=== PATIENT | male | born 1970 | race Hispanic/Latino ===

== ENCOUNTER 2018-06-19 11:50 | Emergency (ER) | payer OTHER, SELFPAY ==
[2018-06-19] MEDS ORDERED: traMADol HCl 50 MG TAB ONE (13:32)
[2018-06-19] MEDS ORDERED: Adacel (T-DAP) 0.5 ML SYRINGE ONE (13:33)
[2018-06-19] MEDS ORDERED: Lidocaine 1% w/Epinephrine 1:100K 20 ML VIAL ONE (13:33)
== END 2018-06-19 14:45 | disposition home or self-care (01) ==
LOC: ERS 11:50
DX: L02.31 Cutaneous abscess of buttock (principal); F17.210 Nicotine dependence, cigarettes, uncomplicated
CPT/HCPCS: 10060; 90471; 90715; J2001

== ENCOUNTER 2018-06-20 16:45 | Emergency (ER) | payer SELFPAY ==
[2018-06-20] MEDS ORDERED: HYDROcodone/Acetaminophen 5/325 mg Tablet ONE (18:20)
== END 2018-06-20 18:26 | disposition home or self-care (01) ==
LOC: ERS 16:45
DX: Z48.817 Encounter for surgical aftercare following surgery on the skin and subcutaneous tissue (principal); F17.210 Nicotine dependence, cigarettes, uncomplicated
CPT/HCPCS: 99282

== ENCOUNTER 2019-08-22 09:34 | Emergency (ER) | payer SELFPAY ==
[2019-08-22] MEDS ORDERED: Adacel (T-DAP) 0.5 ML SYRINGE ONE (10:09)
== END 2019-08-22 10:24 | disposition home or self-care (01) ==
LOC: ERS 09:34
DX: S41.151A Open bite of right upper arm, initial encounter (principal); S81.851A Open bite, right lower leg, initial encounter; F17.210 Nicotine dependence, cigarettes, uncomplicated; W54.0XXA Bitten by dog, initial encounter
CPT/HCPCS: 90471; 90715

== ENCOUNTER 2019-08-31 07:34 | Emergency (ER) | payer SELFPAY | END 2019-08-31 08:31 | disposition home or self-care (01) | LOC: ERS 07:34 | DX: S71.151D Open bite, right thigh, subsequent encounter (principal); S41.151D Open bite of right upper arm, subsequent encounter; S81.012D Laceration without foreign body, left knee, subsequent encounter; F17.210 Nicotine dependence, cigarettes, uncomplicated; W54.0XXD Bitten by dog, subsequent encounter | CPT/HCPCS: 99283 ==

== ENCOUNTER 2020-03-29 18:27 | Emergency (ER) | payer SELFPAY ==
[~2020-03-29 18:27] MED LIST: Iopamidol-370 76% 500 ML 1 ML ONE
[2020-03-29] MEDS ORDERED: Ondansetron PF 4 MG/2 ML Vial ONE (18:38)
[2020-03-29] MEDS ORDERED: Fentanyl 100 MCG/2 ML VIAL ONE (18:38)
[2020-03-29 18:50] LABS: #Eosinphils 0.1 thou/uL (0.0-0.7); #Lymphocytes 2.9 thou/uL (1.20-3.40); #Monocytes 0.8 thou/uL (0.11-0.59); #Neutrophils 3.6 thou/uL (1.40-6.50); %Basophils 0.2 % (0.0-1.0); %Eosinophils 1.4 % (0.0-10.0); %Lymphocytes 38.9 % (21.0-51.0); %Monocytes 10.9 % (0.0-10.0); %Neutrophils 48.6 % (42.0-75.0); Hemoglobin 15.8 g/dL (14.0-18.0); Mean Corpuscular Hemoglobin 32.6 pg (27.0-31.0); Mean Platelet Volume 6.7 fL (7.4-10.4); Platelet Count 257 thou/uL (130-400); RBC Distribution Width 11.2 % (11.5-14.5); Red Blood Cell (RBC) Count 4.84 mill/uL (4.70-6.10); White Blood Cell (WBC) Count 7.4 thou/uL (4.8-10.8)
[2020-03-29 19:27] LABS: ALT (SGPT) 45 U/L (8-55); AST (SGOT) 26 U/L (5-34); Albumin 4.5 g/dL (3.5-5.0); Alkaline Phosphatase 115 U/L (40-110); Anion Gap 15 mmol/L (10-20); BUN (Urea Nitrogen) 11 mg/dL (8.9-20.6); Bilirubin, Total 0.5 mg/dL (0.2-1.2); Calc. Creatinine Clearance 0 mL/min (70-130); Calcium 9.4 mg/dL (7.8-10.44); Carbon Dioxide 25 mmol/L (22-29); Globulin 3.8 g/dL (2.4-3.5); Glucose 139 mg/dL (70-105); Protein, Total 8.3 g/dL (6.0-8.3)
--- NOTE | 2020-03-29 19:31 | CT ---
CT of the chest, abdomen, pelvis, thoracic spine, and lumbar spine: 03/29/2020 COMPARISON: None HISTORY: Injury, trauma, pain TECHNIQUE: Axial CT imaging at 5 mm intervals from the thoracic inlet through the pubic symphysis wit h IV contrast. Coronal and sagittal reformatted imaging provided of the chest, abdomen, pelvis, thoracic spine, and lumbar spine. FINDINGS: There is a small nonspecific hypodense lesion posterior to the clavicular head on the left extending into the superior mediastinum, measuring approximately 2.7 cm in greatest transverse dimension, stable when compared to a cervical spine CT performed in 2013. No axillary, mediastinal, or hilar adenopathy. No pleural, pericardial, or mediastinal fluid is noted . The vascular structures of the chest appear patent. There is no pneumothorax appreciated on either side. There are mild apical subpleural cystic changes bilaterally and there is mild centrilobular emphysema tous change within the right lung apex. No discrete pulmonary parenchymal mass lesion or nodule is appreciated on the left. No acute pulmonar y parenchymal abnormality is appreciated on either side. There is a left lower lobe pulmonary nodule on axial image 119 which measures approximately 5 mm. Review of the osseous structures of the chest demonstrate no acute findings. No free intraperitoneal air or fluid is seen. The liver, gallbladder, spleen, pancreas, adrenal glands, and kidneys demonstrate no acute findings. There are retroperitoneal postoperative clips. There are linear areas of calcification associated with the renal cortex on the left inferiorly and superiorly which may be related to prior insult or p rior surgery/procedure. Limited assessment of the bowel reveals no evidence for inflammatory change or obstruction. The vascu lar structures of the abdomen/pelvis appear patent and no abdominal or pelvic lymphadenopathy is appreciated. Review of the osseous structures of the pelvis demonstrate no widening of the pubic symphysis or sacr oiliac joints. No acute fracture or dislocation is seen within the pelvis. The sternum and manubrium appear intact. There is multilevel thoracic spine disc space narrowing and bilateral facet hypertrophy. Thoracic sandor tebral body height and alignment appears maintained with no evidence for an acute thoracic spine fracture or dislocation. There is prominent degenerative change at the lumbosacral junction with mild associated anterolisthes is. There is no acute fracture or dislocation appreciated within the lumbar spine. IMPRESSION: Numerous incidental findings as detailed above. No acute posttraumatic abnormalities are noted. This includes a 5 mm nodule within the right lower lobe. Based on Fleischner guidelines, Nodules of this size do not require follow-up in low risk patients. If the patient is a high risk pat ient for malignancy, follow-up chest CT suggested in one year. Results discussed with Dr. Zaldivar at 7:25 PM 03/29/2020
[2020-03-29 19:48] LABS: Chloride 102 mmol/L (98-107); Potassium 3.5 mmol/L (3.5-5.1); Sodium 138 mmol/L (136-145)
[2020-03-29] MEDS ORDERED: Ketorolac Tromethamine 30 MG/ML VIAL ONE (19:55)
== END 2020-03-29 20:05 | disposition home or self-care (01) ==
LOC: ERS 18:27
DX: S20.221A Contusion of right back wall of thorax, initial encounter (principal); R91.1 Solitary pulmonary nodule; W22.8XXA Striking against or struck by other objects, initial encounter; F17.210 Nicotine dependence, cigarettes, uncomplicated
CPT/HCPCS: 71260; 74177; 80053; 85025; 96374; 96375; G0390; J1885; J2405; J3010; Q9967

== ENCOUNTER 2020-11-30 07:46 | Emergency (ER) | payer SELFPAY | END 2020-11-30 08:41 | disposition home or self-care (01) | LOC: ERS 07:46 | DX: H01.001 Unspecified blepharitis right upper eyelid (principal); I10 Essential (primary) hypertension; F17.210 Nicotine dependence, cigarettes, uncomplicated | CPT/HCPCS: 99283 ==

== ENCOUNTER 2021-07-29 04:28 | Emergency (ER) | payer SELFPAY ==
[2021-07-29] MEDS ORDERED: Meclizine HCl 25 MG TAB ONE (04:53)
[2021-07-29 05:14] LABS: #Eosinphils 0.2 thou/uL (0.0-0.7); #Lymphocytes 2.4 thou/uL (1.20-3.40); #Monocytes 0.7 thou/uL (0.11-0.59); #Neutrophils 3.4 thou/uL (1.40-6.50); %Basophils 0.4 % (0.0-1.0); %Eosinophils 2.7 % (0.0-10.0); %Lymphocytes 35.7 % (21.0-51.0); %Monocytes 10.2 % (0.0-10.0); %Neutrophils 50.9 % (42.0-75.0); Mean Corpuscular HGB CONC 35.3 g/dL (32.0-36.0); Mean Corpuscular Hemoglobin 33.2 pg (27.0-31.0); Mean Corpuscular Volume 94.2 fL (78.0-98.0); Mean Platelet Volume 6.4 fL (7.4-10.4); Platelet Count 242 thou/uL (130-400); RBC Distribution Width 11.7 % (11.5-14.5); White Blood Cell (WBC) Count 6.8 thou/uL (4.8-10.8)
[2021-07-29 05:40] LABS: ALT (SGPT) 97 U/L (8-55); AST (SGOT) 44 U/L (5-34); Albumin 4.1 g/dL (3.5-5.0); Alkaline Phosphatase 106 U/L (40-110); Anion Gap 12 mmol/L (10-20); BUN (Urea Nitrogen) 11 mg/dL (8.9-20.6); Calc. Creatinine Clearance 0 mL/min (70-130); Calcium 8.9 mg/dL (7.8-10.44); Carbon Dioxide 28 mmol/L (22-29); Chloride 101 mmol/L (98-107); Globulin 3.7 g/dL (2.4-3.5); Glucose 193 mg/dL (70-105); Potassium 3.6 mmol/L (3.5-5.1); Protein, Total 7.8 g/dL (6.0-8.3); Sodium 137 mmol/L (136-145)
== END 2021-07-29 05:56 | disposition home or self-care (01) ==
LOC: ERS 04:28
DX: R42 Dizziness and giddiness (principal); F17.210 Nicotine dependence, cigarettes, uncomplicated
CPT/HCPCS: 36415; 36416; 80053; 85025; 93005

== ENCOUNTER 2022-09-17 07:32 | Emergency (ER) | payer OTHER, SELFPAY | END 2022-09-17 08:15 | LOC: ERS 07:32 | DX: S60.012A Contusion of left thumb without damage to nail, initial encounter (principal); F17.210 Nicotine dependence, cigarettes, uncomplicated; W23.1XXA Caught, crushed, jammed, or pinched between stationary objects, initial encounter ==

== ENCOUNTER 2024-09-12 05:46 | Emergency (ER) | payer OTHER ==
[2024-09-12] MEDS ORDERED: Ketorolac Tromethamine 30 MG (1 mL) VIAL ONE (07:34)
[2024-09-12] MEDS ORDERED: Ketorolac Tromethamine 30 MG (1 mL) VIAL IM SCH (07:45)
[2024-09-12] MEDS ORDERED: Colchicine 0.6 MG TAB PO SCH (07:45)
== END 2024-09-12 08:20 | disposition home or self-care (01) ==
LOC: ERS 05:46
DX: L03.032 Cellulitis of left toe (principal); B35.3 Tinea pedis; M79.675 Pain in left toe(s); E11.9 Type 2 diabetes mellitus without complications; F17.210 Nicotine dependence, cigarettes, uncomplicated
CPT/HCPCS: 96372; 99283; J1885

== ENCOUNTER 2024-09-12 18:39 | Emergency (ER) | payer OTHER ==
[2024-09-12] MEDS ORDERED: Ketorolac Tromethamine 30 MG (1 mL) VIAL ONE (19:50)
== END 2024-09-12 20:29 | disposition home or self-care (01) ==
LOC: ERS 18:39
DX: L03.116 Cellulitis of left lower limb (principal); E11.9 Type 2 diabetes mellitus without complications; F17.210 Nicotine dependence, cigarettes, uncomplicated
CPT/HCPCS: 96372; 99282; J1885